=== PATIENT | male | born 1990 | race Caucasian/White ===

== ENCOUNTER 2017-12-16 07:31 | Day surgery (SDC) | payer OTHER ==
[~2017-12-16 07:31] MED LIST: ROCURONIUM 50 MG INJ
[2017-12-16] MEDS ORDERED: BUPIVACAINE 0.25%/EPI (SDV) 30 ML INJ (08:58)
[2017-12-16] MEDS: BUPIVACAINE 0.25%/EPI (SDV) 30 ML INJ INJ (09:10)
[2017-12-16] MEDS ORDERED: MIDAZOLAM 1 MG/ML 2 ML INJ (09:20)
[2017-12-16] MEDS ORDERED: PROPOFOL 20 ML (09:20)
[2017-12-16] MEDS ORDERED: LIDOCAINE 1% (MDV) 20 ML INJ (09:20)
[2017-12-16] MEDS ORDERED: HYDROmorphONE 1 MG/5 ML IV SYRINGE IV (09:30)
[2017-12-16] MEDS ORDERED: DEXAMETHASONE 4 MG/ML 1 ML INJ (09:31)
[2017-12-16] MEDS ORDERED: ONDANSETRON 4 MG INJ ×2 (09:31→10:42)
[2017-12-16] MEDS ORDERED: CEFAZOLIN 1 GM INJ (09:31)
[2017-12-16] MEDS ORDERED: SUGAMMADEX SODIUM 200 MG/2 ML VIAL IV (09:59)
[2017-12-16] MEDS: HYDROmorphONE 1 MG/5 ML IV SYRINGE IV ×2 (10:27→10:37)
[2017-12-16] MEDS ORDERED: OXYCODONE/ACETAMINOPHEN (5/325) TAB PO (10:30)
[2017-12-16] MEDS ORDERED: morphine 2 MG INJ IV (10:30)
[2017-12-16] MEDS ORDERED: MEPERIDINE 25 MG INJ (10:35)
[2017-12-16] MEDS: ONDANSETRON 4 MG INJ IV (10:47)
[2017-12-16] MEDS: MEPERIDINE 25 MG INJ IV (10:48)
[2017-12-16] MEDS: OXYCODONE/ACETAMINOPHEN (5/325) TAB PO (11:47)
== END 2017-12-16 12:30 | disposition home or self-care (01) ==
LOC: SDS 07:31
DX: K40.90 Unilateral inguinal hernia, without obstruction or gangrene, not specified as recurrent (principal)
CPT/HCPCS: 49505